=== PATIENT | male | born 1965 | race Caucasian/White ===

== ENCOUNTER 2021-11-17 06:01 | Day surgery (SDC) | payer OTHER ==
[2021-11-17] MEDS ORDERED: Meropenem 500 MG SDV ONE (07:07)
[2021-11-17] MEDS ORDERED: Bupivacaine 0.5%/EPINEPHrine 1:200,000 50 ML MDV ONE (07:07)
[2021-11-17] MEDS ORDERED: Acetaminophen 500 MG Tab PO ONE (07:10)
[2021-11-17] MEDS ORDERED: Bacitracin Oint 1 GM U/D Packet ONE (07:10)
[2021-11-17] MEDS ORDERED: Rocuronium 50 MG/5 ML Vial ONE (07:11)
[2021-11-17] MEDS ORDERED: Ondansetron 4 MG/2 ML SDV ONE (07:11)
[2021-11-17] MEDS ORDERED: Dexamethasone 4 MG/ML SDV ONE (07:11)
[2021-11-17] MEDS ORDERED: Succinylcholine 200 MG/10 ML MDV ONE (07:11)
[2021-11-17] MEDS ORDERED: Glycopyrrolate 0.2 MG/ML 5 ML MDV ONE (07:11)
[2021-11-17] MEDS ORDERED: Propofol 200 MG/20 ML SDV ONE (07:11)
[2021-11-17] MEDS ORDERED: fentaNYL 250 MCG/5 ML SDV ONE ×2 (07:11→08:18)
[2021-11-17] MEDS ORDERED: Neostigmine Methylsulfate 1 MG/ML 5 ML Syringe ONE (07:11)
[2021-11-17] MEDS ORDERED: Dextrose 5%-Lactated Ringers 1,000 ML IV SCH (07:15)
[2021-11-17] MEDS ORDERED: ceFAZolin 2 GM in Sodium Chloride 0.9% 50 ML IV ONE (07:30)
[2021-11-17] MEDS ORDERED: Ketamine 24 MG in Sodium Chloride 0.9% 19.76 ML IV SCH (08:00)
[2021-11-17] MEDS ORDERED: Ketamine 500 MG/5 ML MDV IV SCH (08:00)
[2021-11-17] MEDS ORDERED: Lidocaine 1% 50 ML MDV ONE (08:35)
[2021-11-17] MEDS ORDERED: Ketorolac 30 MG/ML SDV ONE (08:52)
[2021-11-17] MEDS ORDERED: Lactated Ringers 1,000 ML ONE (08:53)
[2021-11-17] MEDS ORDERED: Linezolid 600 MG/300 ML Premix Bag IRR ONE (09:00)
[2021-11-17] MEDS ORDERED: hydrOXYzine HCL 100 MG/2 ML SDV IM ONE (09:47)
[2021-11-17] MEDS ORDERED: fentaNYL 50 MCG/ML SDV IVPUSH ONE (09:47)
[2021-11-17] MEDS: oxyCODONE 5 MG Tab PO PRN ×2 (11:29→15:37)
== END 2021-11-17 16:45 | disposition home or self-care (01) ==
LOC: JP.SDS 06:01
PROVIDERS: ATTEND Surgery
DX: K43.6 Other and unspecified ventral hernia with obstruction, without gangrene (principal); D17.1 Benign lipomatous neoplasm of skin and subcutaneous tissue of trunk; K42.0 Umbilical hernia with obstruction, without gangrene; I10 Essential (primary) hypertension; E11.9 Type 2 diabetes mellitus without complications
CPT/HCPCS: 21554; 49653; 82947; A9270; C1781; J0171; J0330; J0690; J1100; J1885; J2001; J2020; J2185; J2405; J2704; J2710; J2795; J3010; J3410; J3490; J7120; J7121; 88302; 88304